=== PATIENT | female | born 1990 | race Caucasian/White ===

== ENCOUNTER 2020-09-02 19:27 | Inpatient (IN) | payer MEDICAID, OTHER ==
[~2020-09-02] VITALS: Ht 160 cm; Wt 92.4 kg
[~2020-09-02 19:27] MED LIST: ACETAMINOPHEN; HYDROCODONE; IBUP-1222 PO; NITR100C56 PO; OXYC1TAB14 PO
--- NOTE | 2020-09-02 19:51 | NUR ---
[facility] RECORDS REQUESTED FOR VISIT LAST NIGHT
[2020-09-02 20:29] LABS: BASOPHILS % (AUTO) 1 % (0-1); EOSINOPHILS % (AUTO) 1 % (1-7); LYMPHOCYTES % (AUTO) 21 % (22-44); MEAN CORPUSCULAR HEMOGLOBIN 27.7 pg (27.0-34.8); MEAN CORPUSCULAR HGB CONC 33.7 g/dL (32.4-35.8); MEAN PLATELET VOLUME 8.5 fL (7.4-10.4); MONOCYTES % (AUTO) 6 % (2-9); NEUTROPHILS % (AUTO) 70 % (42-75); PLATELET COUNT 356 x10^3/uL (130-400); RED CELL DISTRIBUTION WIDTH 13.6 % (9.6-15.2)
[2020-09-02 20:39] LABS: ALANINE AMINOTRANSFERASE 335 U/L (12-78); ALBUMIN 3.8 g/dL (3.4-5.0); ANION GAP 9 mmol/L (5-15); CALCIUM 9.4 mg/dL (8.5-10.1); CHLORIDE 110 mmol/L (98-107); CREATININE 0.63 mg/dL (0.55-1.02)
[2020-09-02 20:41] LABS: ALKALINE PHOSPHATASE 227 U/L (45-117); BILIRUBIN,TOTAL 2.6 mg/dL (0.2-1.0); TOTAL PROTEIN 8.2 g/dL (6.4-8.2)
--- NOTE | 2020-09-02 20:41 | NUR ---
PT BACK FROM US NOW
[2020-09-02] MEDS ORDERED: ONDANSETRON 2MG/ML, 2ML ONE (20:47)
[2020-09-02] MEDS ORDERED: MORPHINE SULFATE 4 MG/ML, 1ML ONE (20:48)
[2020-09-02] MEDS ORDERED: MORPHINE SULFATE 4 MG/ML, 1ML IVPush PRN (21:00)
[2020-09-02] MEDS ORDERED: ONDANSETRON 2MG/ML, 2ML IVPush ONE (21:00)
[2020-09-02 21:08] LABS: MD SCAN
--- NOTE | 2020-09-02 22:10 | NUR ---
Patient ambulated to and from restroom without difficulty and steady gait.
[2020-09-02] MEDS ORDERED: LABETALOL 5MG/ML, 20ML IVPush PRN (22:30)
[2020-09-02] MEDS ORDERED: SODIUM CHLORIDE 0.9% 1,000 ML IV SCH (22:30)
[2020-09-02] MEDS ORDERED: IBUPROFEN 600 MG TABLET PO PRN (22:30)
[2020-09-02 23:45] VITALS: BP 122/86
[2020-09-03] MEDS: morphine SULFATE 10 MG/ML, 1ML IVPush PRN ×4 (00:41→23:19)
[2020-09-03 02:45] VITALS: BP 103/65
[2020-09-03 05:31] LABS: BASOPHILS % (AUTO) 1 % (0-1); EOSINOPHILS % (AUTO) 2 % (1-7); LYMPHOCYTES % (AUTO) 30 % (22-44); MEAN CORPUSCULAR HEMOGLOBIN 28.1 pg (27.0-34.8); MEAN PLATELET VOLUME 9.7 fL (7.4-10.4); MONOCYTES % (AUTO) 9 % (2-9); NEUTROPHILS % (AUTO) 58 % (42-75); PLATELET COUNT 231 x10^3/uL (130-400); RED BLOOD COUNT 4.73 x10^6/uL (3.82-5.3)
[2020-09-03 05:34] LABS: MD NO
[2020-09-03 06:06] LABS: ALBUMIN 3.4 g/dL (3.4-5.0); ANION GAP 8 mmol/L (5-15); CALCIUM 8.9 mg/dL (8.5-10.1); CHLORIDE 110 mmol/L (98-107)
[2020-09-03 06:09] LABS: ALANINE AMINOTRANSFERASE 307 U/L (12-78); ALKALINE PHOSPHATASE 204 U/L (45-117); BILIRUBIN,TOTAL 3.1 mg/dL (0.2-1.0); TOTAL PROTEIN 7.5 g/dL (6.4-8.2)
[2020-09-03 06:53] VITALS: BP 104/69
[2020-09-03] MEDS ORDERED: FENTANYL PF 100 MCG/2ML ONE (10:33)
[2020-09-03] MEDS ORDERED: MIDAZOLAM 1 MG/ML, 2ML ONE (10:33)
[2020-09-03] MEDS ORDERED: PROPOFOL 10 MG/ML, 20ML ONE (10:45)
[2020-09-03] MEDS ORDERED: SUCCINYLCHOLINE 20 MG/ML, 10ML ONE (10:45)
[2020-09-03] MEDS ORDERED: OMNIPAQUE 350 MG/ML, 50 ML BOTTLE ONE (10:52)
[2020-09-03] MEDS ORDERED: DIAZEPAM 5 MG/ML, 2ML IVPush PRN (11:30)
[2020-09-03] MEDS ORDERED: ONDANSETRON 2MG/ML, 2ML IVPush PRN (11:30)
[2020-09-03] MEDS ORDERED: DIPHENHYDRAMINE 50 MG/ML, 1ML IVPush PRN (11:30)
[2020-09-03] MEDS ORDERED: MEPERIDINE/PF 25MG/0.5ML IVPush PRN (11:30)
[2020-09-03] MEDS ORDERED: ACETAMINOPHEN 325 MG TABLET PO PRN (11:30)
[2020-09-03] MEDS ORDERED: FENTANYL PF 100 MCG/2ML IV PRN (11:30)
[2020-09-03] MEDS ORDERED: PROMETHAZINE 25 MG/ML, 1ML IVPush PRN (11:30)
[2020-09-03] MEDS ORDERED: HYDROmorphone 1 MG/ML, 1ML INJ IVPush PRN (11:30)
[2020-09-03] MEDS ORDERED: OXYcodone 5 MG/5 ML ORAL.SOL UDC PO PRN (11:30)
[2020-09-03 14:09] VITALS: BP 115/81
[2020-09-03] MEDS: ONDANSETRON 2MG/ML, 2ML IVPush PRN (14:16)
[2020-09-03] MEDS: HYDROcodone/APAP 5/325 TABLET PO PRN ×2 (16:51→21:33)
[2020-09-03] MEDS ORDERED: CEFTRIAXONE PMX 1GM/50ML 50 ML IV SCH (18:00)
[2020-09-03] MEDS ORDERED: POTASSIUM CHLORIDE 10 MEQ in D5%-LACTATED RINGERS 1,000 ML IV SCH (18:00)
[2020-09-03 21:11] VITALS: BP 106/71
[2020-09-03] MEDS: ONDANSETRON ODT 4 MG PO PRN (23:15)
[2020-09-04 01:20] VITALS: BP 105/67
[2020-09-04] MEDS: HYDROcodone/APAP 5/325 TABLET PO PRN ×3 (01:35→21:28)
[2020-09-04] MEDS: DOCUSATE 100 MG CAPSULE PO PRN (01:38)
[2020-09-04] MEDS: morphine SULFATE 10 MG/ML, 1ML IVPush PRN ×2 (04:00→17:59)
[2020-09-04] MEDS: ONDANSETRON 2MG/ML, 2ML IVPush PRN ×3 (04:07→18:20)
[2020-09-04 05:06] LABS: BASOPHILS % (AUTO) 0 % (0-1); EOSINOPHILS % (AUTO) 1 % (1-7); LYMPHOCYTES % (AUTO) 18 % (22-44); MEAN CORPUSCULAR HGB CONC 33.8 g/dL (32.4-35.8); MEAN PLATELET VOLUME 8.4 fL (7.4-10.4); MONOCYTES % (AUTO) 6 % (2-9); NEUTROPHILS % (AUTO) 75 % (42-75); PLATELET COUNT 294 x10^3/uL (130-400); RED BLOOD COUNT 4.54 x10^6/uL (3.82-5.3); RED CELL DISTRIBUTION WIDTH 13.9 % (9.6-15.2)
[2020-09-04 05:12] LABS: ALANINE AMINOTRANSFERASE 228 U/L (12-78); ALBUMIN 3.2 g/dL (3.4-5.0); ANION GAP 7 mmol/L (5-15); CALCIUM 8.9 mg/dL (8.5-10.1); CHLORIDE 108 mmol/L (98-107); CREATININE 0.61 mg/dL (0.55-1.02); MD NO
[2020-09-04 05:16] LABS: ALKALINE PHOSPHATASE 188 U/L (45-117); BILIRUBIN, DIRECT 0.6 mg/dL (0.1-0.2); BILIRUBIN,INDIRECT 0.4 mg/dL (0.0-2.0); TOTAL PROTEIN 7.3 g/dL (6.4-8.2)
[2020-09-04 06:22] VITALS: BP 103/71
[2020-09-04] MEDS ORDERED: morphine SULFATE 10 MG/ML, 1ML IVPush PRN (07:30)
[2020-09-04] MEDS: HEPARIN 5,000 UNITS/ML, 1ML SQ SCH ×4 (07:30→23:30)
[2020-09-04] MEDS: SODIUM CHLORIDE 0.9% 1,000 ML IV SCH (08:32)
[2020-09-04 10:51] VITALS: BP 107/72
[2020-09-04] MEDS ORDERED: OMNIPAQUE 350 MG/ML, 100ML BOTTLE ONE (11:45)
[2020-09-04 12:09] VITALS: BP 112/78
[2020-09-04] MEDS: METRONIDAZOLE PMX 500MG/100ML 100 ML IV SCH ×2 (12:51→21:29)
[2020-09-04] MEDS ORDERED: FENTANYL PF 100 MCG/2ML ONE (14:40)
[2020-09-04] MEDS ORDERED: MIDAZOLAM 1 MG/ML, 5ML ONE (14:40)
[2020-09-04] MEDS ORDERED: LIDOCAINE 1%, 20ML ONE (14:56)
[2020-09-04] MEDS: CEFTRIAXONE PMX 2GM/50ML 50 ML IVPB SCH (16:51)
[2020-09-04] MEDS: FLUCONAZOLE 200 MG/100 ML 100 ML IV SCH (18:00)
[2020-09-04 19:00] LABS: MICROSCOPIC AUTO
[2020-09-04 20:16] VITALS: BP 107/74
[2020-09-05 00:32] VITALS: BP 100/67
[2020-09-05] MEDS: ONDANSETRON ODT 4 MG PO PRN (03:16)
[2020-09-05] MEDS: HYDROcodone/APAP 5/325 TABLET PO PRN ×3 (03:16→17:51)
[2020-09-05] MEDS: DOCUSATE 100 MG CAPSULE PO PRN ×2 (03:17→21:08)
[2020-09-05] MEDS: SODIUM CHLORIDE 0.9% 1,000 ML IV SCH ×2 (03:49→21:09)
[2020-09-05] MEDS: METRONIDAZOLE PMX 500MG/100ML 100 ML IV SCH ×3 (05:27→21:09)
[2020-09-05 05:41] LABS: BILIRUBIN, DIRECT 0.5 mg/dL (0.1-0.2); BILIRUBIN,INDIRECT 0.6 mg/dL (0.0-2.0); BILIRUBIN,TOTAL 1.1 mg/dL (0.2-1.0); TOTAL PROTEIN 6.9 g/dL (6.4-8.2)
[2020-09-05 07:48] VITALS: BP 101/65
[2020-09-05 08:50] LABS: BASOPHILS % (AUTO) 0 % (0-1); EOSINOPHILS % (AUTO) 0 % (1-7); LYMPHOCYTES % (AUTO) 9 % (22-44); MEAN CORPUSCULAR HEMOGLOBIN 27.8 pg (27.0-34.8); MEAN CORPUSCULAR HGB CONC 33.1 g/dL (32.4-35.8); MEAN PLATELET VOLUME 8.7 fL (7.4-10.4); MONOCYTES % (AUTO) 7 % (2-9); NEUTROPHILS % (AUTO) 84 % (42-75); PLATELET COUNT 293 x10^3/uL (130-400); RED CELL DISTRIBUTION WIDTH 13.8 % (9.6-15.2)
[2020-09-05 09:09] LABS: MD SCAN
[2020-09-05] MEDS: HEPARIN 5,000 UNITS/ML, 1ML SQ SCH ×4 (09:35→22:46)
[2020-09-05] MEDS: CEFTRIAXONE PMX 2GM/50ML 50 ML IVPB SCH (11:38)
[2020-09-05 13:35] VITALS: BP 105/74
[2020-09-05] MEDS: FLUCONAZOLE 200 MG/100 ML 100 ML IV SCH (14:18)
[2020-09-05 19:11] VITALS: BP 102/68
[2020-09-05] MEDS: ONDANSETRON 2MG/ML, 2ML IVPush PRN (21:52)
[2020-09-05] MEDS: morphine SULFATE 10 MG/ML, 1ML IVPush PRN (22:43)
[2020-09-06 00:27] VITALS: BP 105/71
[2020-09-06] MEDS: HYDROcodone/APAP 5/325 TABLET PO PRN (03:40)
[2020-09-06] MEDS: METRONIDAZOLE PMX 500MG/100ML 100 ML IV SCH ×3 (05:06→21:42)
[2020-09-06 05:28] LABS: BASOPHILS % (AUTO) 0 % (0-1); EOSINOPHILS % (AUTO) 1 % (1-7); LYMPHOCYTES % (AUTO) 12 % (22-44); MEAN CORPUSCULAR HEMOGLOBIN 27.9 pg (27.0-34.8); MEAN CORPUSCULAR HGB CONC 33.5 g/dL (32.4-35.8); MEAN PLATELET VOLUME 8.5 fL (7.4-10.4); MONOCYTES % (AUTO) 7 % (2-9); NEUTROPHILS % (AUTO) 81 % (42-75); PLATELET COUNT 258 x10^3/uL (130-400); RED BLOOD COUNT 4.06 x10^6/uL (3.82-5.3); RED CELL DISTRIBUTION WIDTH 13.8 % (9.6-15.2)
[2020-09-06 05:38] LABS: ALANINE AMINOTRANSFERASE 96 U/L (12-78); ALBUMIN 2.7 g/dL (3.4-5.0); ANION GAP 12 mmol/L (5-15); CALCIUM 8.4 mg/dL (8.5-10.1); CHLORIDE 107 mmol/L (98-107); CREATININE 0.42 mg/dL (0.55-1.02)
[2020-09-06 05:43] LABS: ALKALINE PHOSPHATASE 118 U/L (45-117); BILIRUBIN,TOTAL 0.8 mg/dL (0.2-1.0); TOTAL PROTEIN 6.4 g/dL (6.4-8.2)
[2020-09-06 05:59] LABS: MD NO
[2020-09-06 06:59] VITALS: BP 100/68
[2020-09-06 08:17] LABS: PREALBUMIN 9.6 mg/dL (20.0-40.0)
[2020-09-06] MEDS: HEPARIN 5,000 UNITS/ML, 1ML SQ SCH ×3 (08:33→22:12)
[2020-09-06] MEDS ORDERED: BISACODYL 10 MG SUPP ONE (08:38)
[2020-09-06] MEDS ORDERED: BISACODYL 10 MG SUPP PR PRN (09:00)
[2020-09-06] MEDS: ACETAMINOPHEN 325 MG TABLET PO PRN (10:39)
[2020-09-06] MEDS: ONDANSETRON ODT 4 MG PO PRN (10:39)
[2020-09-06] MEDS: CEFTRIAXONE PMX 2GM/50ML 50 ML IVPB SCH (11:50)
[2020-09-06] MEDS ORDERED: morphine SULFATE 10 MG/ML, 1ML IVPush PRN (13:30)
[2020-09-06 13:47] VITALS: BP 93/67
[2020-09-06] MEDS: FLUCONAZOLE 200 MG/100 ML 100 ML IV SCH (15:26)
[2020-09-06] MEDS ORDERED: SODIUM CHLORIDE 0.9% 1,000 ML IV SCH ×2 (15:30→17:00)
[2020-09-06] MEDS ORDERED: SMOF TPN IV SCH (17:00)
[2020-09-06] MEDS ORDERED: FAT EMUL IV SCH (17:00)
[2020-09-06] MEDS ORDERED: DEXTROSE 70% IV SCH (17:00)
[2020-09-06] MEDS ORDERED: FILTER, DISP 1.2 MICRON FOR TPN/PVN IV PRN (17:00)
[2020-09-06] MEDS ORDERED: [UNRECOGNIZED DRUG - OTHER] IV SCH (17:00)
[2020-09-06] MEDS ORDERED: AMINO ACID 10% IV SCH (17:00)
[2020-09-06] MEDS ORDERED: TPN PER PHARMACY MC PRN (17:00)
[2020-09-06] MEDS ORDERED: OMNIPAQUE 350 MG/ML, 150 ML BOTTLE ONE (18:42)
[2020-09-06 19:38] VITALS: BP 112/79
[2020-09-06] MEDS: ONDANSETRON 2MG/ML, 2ML IVPush PRN (21:42)
[2020-09-07] MEDS: HYDROcodone/APAP 5/325 TABLET PO PRN (00:38)
[2020-09-07 01:26] VITALS: BP 103/68
[2020-09-07 04:58] LABS: BASOPHILS % (AUTO) 1 % (0-1); EOSINOPHILS % (AUTO) 1 % (1-7); LYMPHOCYTES % (AUTO) 18 % (22-44); MEAN CORPUSCULAR HEMOGLOBIN 28.3 pg (27.0-34.8); MEAN CORPUSCULAR HGB CONC 33.8 g/dL (32.4-35.8); MEAN PLATELET VOLUME 8.4 fL (7.4-10.4); MONOCYTES % (AUTO) 6 % (2-9); NEUTROPHILS % (AUTO) 75 % (42-75); PLATELET COUNT 308 x10^3/uL (130-400); RED BLOOD COUNT 4.28 x10^6/uL (3.82-5.3); RED CELL DISTRIBUTION WIDTH 13.9 % (9.6-15.2)
[2020-09-07] MEDS: METRONIDAZOLE PMX 500MG/100ML 100 ML IV SCH ×3 (05:00→21:31)
[2020-09-07 05:01] LABS: MD NO
[2020-09-07 05:11] LABS: CHLORIDE 112 mmol/L (98-107)
[2020-09-07 05:20] LABS: ALANINE AMINOTRANSFERASE 78 U/L (12-78); ALBUMIN 2.9 g/dL (3.4-5.0); ALKALINE PHOSPHATASE 116 U/L (45-117); ANION GAP 12 mmol/L (5-15); BILIRUBIN,TOTAL 0.6 mg/dL (0.2-1.0); CALCIUM 8.6 mg/dL (8.5-10.1); CREATININE 0.46 mg/dL (0.55-1.02); TOTAL PROTEIN 7.1 g/dL (6.4-8.2)
[2020-09-07] MEDS: HEPARIN 5,000 UNITS/ML, 1ML SQ SCH ×3 (08:16→23:39)
[2020-09-07 08:17] VITALS: BP 97/65
[2020-09-07] MEDS: CEFTRIAXONE PMX 2GM/50ML 50 ML IVPB SCH (12:34)
[2020-09-07 12:44] VITALS: BP 106/74
[2020-09-07] MEDS: FLUCONAZOLE 200 MG/100 ML 100 ML IV SCH (14:19)
[2020-09-07 19:49] VITALS: BP 109/69
[2020-09-07] MEDS: ACETAMINOPHEN 325 MG TABLET PO PRN (21:31)
[2020-09-08 01:34] VITALS: BP 107/74
[2020-09-08 05:30] LABS: BASOPHILS % (AUTO) 1 % (0-1); EOSINOPHILS % (AUTO) 2 % (1-7); LYMPHOCYTES % (AUTO) 24 % (22-44); MEAN CORPUSCULAR HEMOGLOBIN 27.9 pg (27.0-34.8); MEAN CORPUSCULAR HGB CONC 33.5 g/dL (32.4-35.8); MEAN PLATELET VOLUME 8.4 fL (7.4-10.4); MONOCYTES % (AUTO) 7 % (2-9); NEUTROPHILS % (AUTO) 65 % (42-75); PLATELET COUNT 320 x10^3/uL (130-400); RED BLOOD COUNT 4.42 x10^6/uL (3.82-5.3); RED CELL DISTRIBUTION WIDTH 13.9 % (9.6-15.2)
[2020-09-08] MEDS: METRONIDAZOLE PMX 500MG/100ML 100 ML IV SCH ×3 (05:32→22:15)
[2020-09-08 05:35] LABS: MD NO
[2020-09-08 05:39] LABS: ALANINE AMINOTRANSFERASE 63 U/L (12-78); ALBUMIN 2.8 g/dL (3.4-5.0); ANION GAP 9 mmol/L (5-15); CALCIUM 8.4 mg/dL (8.5-10.1); CHLORIDE 110 mmol/L (98-107); CREATININE 0.47 mg/dL (0.55-1.02)
[2020-09-08 05:42] LABS: ALKALINE PHOSPHATASE 107 U/L (45-117); BILIRUBIN,TOTAL 0.5 mg/dL (0.2-1.0); TOTAL PROTEIN 6.9 g/dL (6.4-8.2)
[2020-09-08] MEDS ORDERED: POTASSIUM CHLORIDE 20 MEQ in SODIUM CHLORIDE 0.9% 250 ML IV ONE (07:00)
[2020-09-08 07:01] VITALS: BP 111/76
[2020-09-08] MEDS: HEPARIN 5,000 UNITS/ML, 1ML SQ SCH ×3 (08:01→23:57)
[2020-09-08] MEDS: CEFTRIAXONE PMX 2GM/50ML 50 ML IVPB SCH (12:45)
[2020-09-08] MEDS: ONDANSETRON ODT 4 MG PO PRN (12:57)
[2020-09-08 13:17] VITALS: BP 106/74
[2020-09-08] MEDS: FLUCONAZOLE 200 MG/100 ML 100 ML IV SCH (15:22)
[2020-09-08 19:38] VITALS: BP 105/70
[2020-09-09 01:10] VITALS: BP 127/85
[2020-09-09 05:20] LABS: BASOPHILS % (AUTO) 1 % (0-1); EOSINOPHILS % (AUTO) 2 % (1-7); LYMPHOCYTES % (AUTO) 29 % (22-44); MEAN CORPUSCULAR HEMOGLOBIN 28.1 pg (27.0-34.8); MEAN CORPUSCULAR HGB CONC 34.2 g/dL (32.4-35.8); MEAN PLATELET VOLUME 8.3 fL (7.4-10.4); MONOCYTES % (AUTO) 7 % (2-9); NEUTROPHILS % (AUTO) 61 % (42-75); PLATELET COUNT 341 x10^3/uL (130-400); RED BLOOD COUNT 4.34 x10^6/uL (3.82-5.3); RED CELL DISTRIBUTION WIDTH 13.9 % (9.6-15.2)
[2020-09-09 05:22] LABS: MD NO
[2020-09-09 05:28] LABS: ANION GAP 10 mmol/L (5-15); CALCIUM 8.9 mg/dL (8.5-10.1); CHLORIDE 111 mmol/L (98-107); CREATININE 0.43 mg/dL (0.55-1.02)
[2020-09-09] MEDS: METRONIDAZOLE PMX 500MG/100ML 100 ML IV SCH ×2 (06:03→14:15)
[2020-09-09 07:23] VITALS: BP 122/85
[2020-09-09] MEDS: HEPARIN 5,000 UNITS/ML, 1ML SQ SCH ×2 (08:53→17:03)
[2020-09-09] MEDS: POTASSIUM CHLORIDE 20 MEQ TAB.ER.PRT PO SCH ×2 (08:55→17:04)
[2020-09-09 12:30] VITALS: BP 112/80
[2020-09-09] MEDS: CEFTRIAXONE PMX 2GM/50ML 50 ML IVPB SCH (12:47)
[2020-09-09] MEDS: FLUCONAZOLE 200 MG/100 ML 100 ML IV SCH (15:19)
[2020-09-09 19:58] VITALS: BP 103/71
[2020-09-09] MEDS: FAMOTIDINE 20 MG TABLET PO SCH (21:48)
[2020-09-09] MEDS: CIPROFLOXACIN 500 MG TABLET PO SCH (21:48)
[2020-09-09] MEDS: metroNIDAZOLE 500 MG TABLET PO SCH (21:48)
[2020-09-10 00:38] VITALS: BP 103/71
[2020-09-10] MEDS: HEPARIN 5,000 UNITS/ML, 1ML SQ SCH ×2 (00:50→09:46)
[2020-09-10] MEDS: ACETAMINOPHEN 325 MG TABLET PO PRN (00:53)
[2020-09-10] MEDS: metroNIDAZOLE 500 MG TABLET PO SCH (06:09)
[2020-09-10 06:41] LABS: ANION GAP 10 mmol/L (5-15); CALCIUM 8.7 mg/dL (8.5-10.1); CHLORIDE 110 mmol/L (98-107); CREATININE 0.44 mg/dL (0.55-1.02)
[2020-09-10 07:13] VITALS: BP 101/68
[2020-09-10] MEDS ORDERED: FLUCONAZOLE 200 MG TABLET PO SCH (09:00)
[2020-09-10] MEDS ORDERED: CIPR500T87 PO (09:24)
[2020-09-10] MEDS ORDERED: FAMO20TA7 PO (09:24)
[2020-09-10] MEDS ORDERED: METR500T PO (09:24)
[2020-09-10] MEDS ORDERED: FLUC200T PO (09:24)
[2020-09-10] MEDS: CIPROFLOXACIN 500 MG TABLET PO SCH (09:45)
[2020-09-10] MEDS: FAMOTIDINE 20 MG TABLET PO SCH (09:45)
== END 2020-09-10 11:45 | disposition home or self-care (01) | DRG 444 ==
LOC: ED 20:55 → EDIP 22:40 → OBSVTOIN 22:40 → 3N 23:37 → DCLOUNGE 09-10 11:40
PROVIDERS: ADMIT Family Medicine; ATTEND Family Medicine
PROC: BF131ZZ Fluoroscopy of Gallbladder and Bile Ducts using Low Osmolar Contrast (ICD-10-PCS; 2020-09-03)
PROC: 0FC98ZZ Extirpation of Matter from Common Bile Duct, Via Natural or Artificial Opening Endoscopic (ICD-10-PCS; principal; 2020-09-03 12:00)
PROC: 0W9H30Z Drainage of Retroperitoneum with Drainage Device, Percutaneous Approach (ICD-10-PCS; 2020-09-04)
DX: K80.51 Calculus of bile duct without cholangitis or cholecystitis with obstruction (principal); K68.19 Other retroperitoneal abscess; Z20.822 Contact with and (suspected) exposure to COVID-19; R74.01 Elevation of levels of liver transaminase levels; E66.9 Obesity, unspecified; K59.00 Constipation, unspecified; Z90.49 Acquired absence of other specified parts of digestive tract; Z88.0 Allergy status to penicillin; Z68.36 Body mass index [BMI] 36.0-36.9, adult; Z80.6 Family history of leukemia; Z82.49 Family history of ischemic heart disease and other diseases of the circulatory system; Z79.899 Other long term (current) drug therapy
CPT/HCPCS: 36415; 74018; 74240; 74248; 74328; 96374; 96375; 99285; J3490; J7121; 49406; 74160; 76700; 80048; 80053; 80074; 80076; 81001; 82247; 82248; 83690; 83735; 84100; 84134; 84478; 84703; 85014; 85018; 85025; 87070; 87075; 87102; 87205; 87635; 93005; G0378; J0696; J1644; J2250; J2405; J2704; J3010; J3480; Q0162; Q9967; C1769; J0330; J1450; J2270; J7030; J7050